=== PATIENT | male | born 1985 | race Hispanic/Latino ===

== ENCOUNTER 2019-02-23 05:00 | Emergency (ER) | payer OTHER ==
[~2019-02-23] VITALS: Ht 190.5 cm; Wt 145.1 kg
[2019-02-23] MEDS ORDERED: KETOROLAC TROMETHAMINE 30 MG/ML VIAL IV STA (05:05)
[2019-02-23] MEDS ORDERED: SODIUM CHLORIDE FLUSH 10 ML SYR INJ PRN (05:15)
[2019-02-23 05:49] LABS: BILIRUBIN,URINE NEGATIVE (NEGATIVE); CLARITY,URINE CLEAR (CLEAR); COLOR,URINE YELLOW (YELLOW); KETONES,URINE NEGATIVE (NEGATIVE); LEUKOCYTE ESTERASE ,URINE NEGATIVE (NEGATIVE); NITRITE,URINE NEGATIVE (NEGATIVE); PROTEIN,URINE DIPSTICK NEGATIVE (NEGATIVE); URINE UROBILINOGEN 0.2 mg/dL (0.2 - 1)
[2019-02-23] MEDS ORDERED: ONDANSETRON HCL INJ 2MG/ML 2ML 2 MG/ML VIAL IV STA (05:54)
[2019-02-23] MEDS ORDERED: TETANUS/DIPHTHERIA TOX ADULT 0.5 ML SYR IM ONE (06:00)
[2019-02-23] MEDS ORDERED: HYDROMORPHONE 2MG/ML 2 MG/ML ML IV ONE (06:00)
--- NOTE | 2019-02-23 06:04 | Diagnostic Imaging Report ---
CT Abdomen and Pelvis without contrast INDICATION: Left lower quadrant pain, difficulty urinating TECHNIQUE: Thin collimation axial images obtained from the diaphragm to the level of the pubic symphysis without nonionic intravenous contrast. Dose reduction techniques used: Automated exposure control, adjustment of the mAs and/or kVp according to patient size, standardized low-dose protocol, and/or iterative reconstruction technique. RADIATION DOSE: Total DLP: 1496.6 mGy*cm Estimated effective dose: (DLP x 0.015 x size factor) mSv CTDIvol has been reviewed. It is below the limits set by the Radiation Protocol Committee (RPC). COMPARISON: None. ABDOMEN FINDINGS: Lung Bases: Subsegmental atelectasis. The visualized portion of the mediastinum is normal. Liver: Steatosis. No mass.. Gallbladder: Present and appears normal. No ductal dilatation. Pancreas: Normal attenuation without mass. Spleen: Normal size without mass. Adrenal Glands: No evidence for mass. Kidneys: Right: No renal calculus. No cortical mass or hydronephrosis Left: Edematous. There is fullness of the collecting system. No perinephric inflammation. Pixel sized calculus in the posterior lower pole. Lymph Nodes: No enlarged abdominal or retroperitoneal lymph nodes.. Aorta: Normal in diameter. PELVIS FINDINGS: Bowel: Stomach: Normal. Small Bowel: Normal in caliber with normal wall thickness. Large Bowel: Normal in caliber with normal wall thickness. Appendix: Normal. Bladder: Under distended. There is a calculus at the left UVJ measuring 4 mm. Ureters: Mild left ureteral distention. Right ureter is normal. Peritoneum/retroperitoneum: No free fluid or fluid collection. Bones: Unremarkable for age. Soft tissues: Small fat-containing umbilical hernia. IMPRESSION: 1. Mild left hydroureteronephrosis with a 4 mm calculus at the left UVJ. Punctate left intrarenal calculus. 2. Steatosis. Signed by: Dr. Zo Torrez MD on 02/23/2019 6:00 AM
[2019-02-23 06:14] LABS: BACTERIA,URINE FEW /HPF; EPITHELIAL CELLS,URINE RARE /LPF; WBC,URINE (MAN) 0-5 /HPF (0-5)
[2019-02-23 06:26] VITALS: BP 123/87
== END 2019-02-23 06:41 | disposition home or self-care (01) ==
LOC: ER 05:00
DX: M54.5 Low back pain (principal); N20.1 Calculus of ureter
CPT/HCPCS: 74176; 81001; 99283; J1170; J1885; J2405